=== PATIENT | male | born 1965 | race Two or more races ===

== ENCOUNTER 2017-06-16 11:20 | Emergency (ER) | payer MEDICAID, SELFPAY ==
[~2017-06-16] VITALS: Ht 170.2 cm; Wt 74.8 kg
[~2017-06-16 11:20] MED LIST: IBUPROFEN400 MG PO; IBUPROFEN600 MG ORAL; IBUPROFEN600 MG PO; NORCO 5-325 TA1 EACH ORAL; VALIUM5 MG ORAL
[2017-06-16] MEDS ORDERED: Ketorolac 60mg Inj IM ONE (12:30)
[2017-06-16] MEDS ORDERED: CYCLOBENZAPRINE10 MG ORAL (12:31)
[2017-06-16] MEDS ORDERED: IBUPROFEN600 MG ORAL (12:31)
[2017-06-16 12:37] LABS: APPEARANCE,URINE CLEAR; BILIRUBIN, URINE NEGATIVE (NEGATIVE); GLUCOSE, URINE (UA) NEGATIVE (NEGATIVE); KETONES,URINE NEGATIVE (NEGATIVE); LEUKOCYTE ESTERASE ,URINE 1+ (NEGATIVE); NITRITE,URINE NEGATIVE (NEGATIVE); PH,URINE 7 (4.5-8.0); PROTEIN,URINE NEGATIVE (NEGATIVE); UROBILINOGEN,URINE 1 MG/DL (0.0-1.0)
[2017-06-16 12:44] LABS: COLOR,URINE YELLOW
[2017-06-16 12:49] VITALS: BP 129/97
--- NOTE | 2017-06-16 12:52 | Emergency Room Report ---
History of Present Illness General Chief Complaint: Lower Back Pain or Injury Source: Patient Present Illness HPI Patient is a 52-year-old male presented after increased right-sided back pain. Patient gradual onset of symptoms I he reports having increased pain to his right side. He denies any fever . he denies any dysuria patient states that he had all accident approximately 2 weeks ago which was minor. He denies any vomiting or diarrhea . Patient denies any bowel or bladder dysfunction. He denied any radiation to his legs. Pain is worse with right rotation and right lateral flexion Allergies: Coded Allergies: No Known Allergies (Unverified , 07/09/12) Patient History Past Medical History: see triage record Reviewed Nursing Documentation: PMH: Agreed, PSxH: Agreed Nursing Documentation-PMH Past Medical History: No Stated History Review of Systems All Other Systems: negative except mentioned in HPI Physical Exam Vital Signs Date Time Temp Pulse Resp B/P (MAP) Pulse Ox O2 Delivery O2 Flow Rate FiO2 06/16/17 11:26 97.9 95 16 129/97 99 Room Air General Appearance: well appearing, no apparent distress, alert, GCS 15 Head: normocephalic, atraumatic ENT: hearing grossly normal, normal voice Neck: full range of motion, supple Respiratory: no respiratory distress, speaking full sentences Musculoskeletal: normal inspection, back normal, digits/nails normal, gait/ station normal, normal range of motion, no calf tenderness, other - pain with right lateral flexion and twisting toward right, negative SLR bilaterally Neurologic: normal inspection, alert, oriented x3, normal gait Psychiatric: mood/affect normal Skin: no rash Medical Decision Making Diagnostic Impression: Primary Impression: Acute myofascial strain ER Course Patient presented for low back pain. Differential diagnosis included but was not limited to herniated disc, cauda equina syndrome, abdominal aortic aneurysm , perforated ulcer, spinal epidural abscess, spinal stenosis, lumbar fracture, metastatic lesion, pyelonephritis. The patient appears to be focused on obtaining soma . He became angry when I offered him a different muscle relaxant. A urinalysis shows no definite infection. The patient is advised to follow up with primary care doctor in 1-2 days. Patient is advised to return if any worsening condition or if any changes in status that are concerning. This report is dictated with [employer] telecommunications technician software which may occasionally lead to discrepancies related to use of this software. Labs Test 06/16/17 12:15 Urine Color Yellow Urine Appearance Clear Urine pH 7 (4.5-8.0) Urine Specific [place] 1.010 (1.005-1.035) Urine Protein Negative (NEGATIVE) Urine Glucose (UA) Negative (NEGATIVE) Urine Ketones Negative (NEGATIVE) Urine Occult Blood Negative (NEGATIVE) Urine Nitrite Negative (NEGATIVE) Urine Bilirubin Negative (NEGATIVE) Urine Urobilinogen 1 MG/DL (0.0-1.0) Urine Leukocyte Esterase 1+ (NEGATIVE) Urine RBC 0 /HPF (0 - 0) Urine WBC 2-4 /HPF (0 - 0) Urine Squamous Epithelial Cells Occasional /LPF Urine Bacteria Occasional /HPF (NONE) Last Vital Signs Date Time Temp Pulse Resp B/P (MAP) Pulse Ox O2 Delivery O2 Flow Rate FiO2 06/16/17 11:26 97.9 95 16 129/97 99 Room Air Status: improved Disposition: HOME, SELF-CARE Condition: Stable Scripts Ibuprofen* (MOTRIN*) 600 Mg Tablet 600 MG ORAL Q8H Y for For Pain, #30 TAB 0 Refills Prov: Neri Jim 06/16/17 Cyclobenzaprine Hcl* (FLEXERIL*) 10 Mg Tablet 10 MG ORAL TID Y for Muscle Spasm, #20 TAB Prov: Neri Jim 06/16/17 Referrals: [facility],REFERRING (PCP) Patient Instructions: Back Pain, Adult Neri Jim Jun 16, 2017 12:52
== END 2017-06-16 12:48 | disposition home or self-care (01) ==
LOC: EMR 11:35
DX: M79.1 Myalgia (principal)
CPT/HCPCS: 80307; 81003; 99284

== ENCOUNTER 2018-06-28 12:16 | Emergency (ER) | payer MEDICAID ==
[~2018-06-28] VITALS: Ht 167.6 cm; Wt 72.6 kg
[~2018-06-28 12:16] MED LIST changes: +CYCLOBENZAPRINE10 MG ORAL
[2018-06-28] MEDS ORDERED: NKM (12:22)
[2018-06-28 12:24] VITALS: BP 128/86
[2018-06-28] MEDS ORDERED: TYLENOL EXTRA500 MG ORAL (12:35)
[2018-06-28] MEDS ORDERED: ACYCLOVIR400 MG ORAL (12:35)
--- NOTE | 2018-06-28 12:35 | Emergency Room Report ---
History of Present Illness General Chief Complaint: Male Urogenital Problems Source: Patient Present Illness HPI 53-year-old male patient presents the ER complaining of pain on the tip of his penis for the past day. Reports pain is intensified in the past few hours. Describes as a burning pain. Patient reports a history of herpes. States that the herpes is usually on the base of the skin around the base of his penis and not on the tip of the. Reports recent sexual activity 10 days ago, states did not use protection. States mutually monogamous relationship, denies sex with other people. Denies dysuria, hematuria, penile discharge. Denies scrotum pain or swelling. Denies fever, chest pain, shortness of breath. Reports previously taking herpes medication, states has not taken for a while, states does not member the name of the medication. Concern for gonorrhea or chlamydia. States has follow-up appoint with his primary care scheduled for Sunday. Allergies: Coded Allergies: No Known Allergies (Unverified , 07/09/12) Patient History Past Medical History: see triage record Reviewed Nursing Documentation: PMH: Agreed; PSxH: Agreed Nursing Documentation-PMH Past Medical History: No Stated History Review of Systems All Other Systems: negative except mentioned in HPI Physical Exam Vital Signs Date Time Temp Pulse Resp B/P (MAP) Pulse Ox O2 Delivery O2 Flow Rate FiO2 06/28/18 12:19 98.4 95 18 123/86 96 Room Air Sp02 EP Interpretation: reviewed, normal General Appearance: well appearing, no apparent distress, alert, GCS 15, non- toxic Head: normocephalic, atraumatic Eyes: bilateral eye normal inspection, bilateral eye PERRL ENT: hearing grossly normal, normal pharynx, no angioedema, normal voice, uvula midline, moist mucus membranes Neck: full range of motion Respiratory: lungs clear, normal breath sounds, no rhonchi, no respiratory distress, no accessory muscle use, no wheezing, speaking full sentences Cardiovascular #1: regular rate, rhythm, no edema Genitourinary: scrotum normal, other - Small 2 cm area of erythema on tip of penis, no vesicles, no blistering, no edema, no chancre Musculoskeletal: back normal, digits/nails normal, gait/station normal, normal range of motion, non-tender Neurologic: alert, oriented x3, responsive, motor strength/tone normal, sensory intact Psychiatric: mood/affect normal Medical Decision Making PA Attestation Dr. Sykes is my supervising Physician whom patient management has been discussed with. 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 presents to the ED c/o pain on head of penis x1day. Ddx considered but are not limited to atopic dermatitis, herpes simplex, syphillis, pearly penile papules, molluscum contagiosum, gonorrhea, chlamydia, cellulitis. Vital signs: are WNL, pt. is afebrile ER COURSE: Physical consistent with early herpes outbreak on tip of penis. No blisters or vesicles noted however due to patient history of herpes and complaints of burning pain with erythematous region on tip of penis will treat as release herpes infection. Will provide patient with acyclovir. Take Tylenol for pain symptoms. Advised patient to follow with primary care provider. Avoid sexual activity. Follow-up with PCP or STI clinic for STI testing. Patient denies concern for gonorrhea chlamydia, we will not treat patient at this time. No chancre, low suspicion for syphilis. No papules, low suspicion for pearly penile papules. ER precautions given. DISCHARGE: -Rx given for Acyclovir, 400mg TID x7 days. At this time pt. is stable for d/c to home. Patient is resting comfortably in no acute distress, nontoxic appearing. Will provide printed patient care instructions, and any necessary prescriptions. Patient instructed to follow with primary care provider in 3-5 days for further treatment and referral as needed. Informed patient breakouts may occur during periods of stress or illness. Discuss future treatment options to prevent breakouts with patient; informed patient to discuss with primary care provider. Care plan and follow up instructions have been discussed with the patient prior to discharge. Patient reports understanding and agreement to treatment plan. Patient questions asked and answered. ER precautions given, patient instructed to return to ER immediately for any new or worsening of symptoms. - Please note that this Emergency Department Report was dictated using [employer] building materials yard worker technology software, occasionally this can lead to erroneous entry secondary to interpretation by the dictation equipment. Last Vital Signs Date Time Temp Pulse Resp B/P (MAP) Pulse Ox O2 Delivery O2 Flow Rate FiO2 06/28/18 12:19 98.4 95 18 123/86 96 Room Air Disposition: HOME, SELF-CARE Condition: Stable Scripts Acetaminophen* (TYLENOL EXTRA STRENGTH*) 500 Mg Tablet 500 MG ORAL Q8H PRN for Prn Headache/Temp > 101, #30 TAB 0 Refills Prov: Filipe Betts 06/28/18 Acyclovir* (ACYCLOVIR*) 400 Mg Tablet 400 MG ORAL FIVE TIMES A DAY for 7 Days, #35 TAB Prov: Filipe Betts 06/28/18 Patient Instructions: Genital Herpes Additional Instructions: Followup with primary care provider at scheduled appointment. Take medications as directed. Take Tylenol for pain. Avoid sexual activity for 2 weeks. Inform sexual partners for need for treatment. Discussed testing for gonorrhea/chlamydia/HIV/syphilis with PCP or follow-up with STI clinic. Patient questions asked and answered. ER precautions given, patient instructed to return to ER immediately for any new or worsening of symptoms. Filipe Betts Jun 28, 2018 12:35
== END 2018-06-28 12:50 | disposition home or self-care (01) ==
LOC: EMR 12:45
DX: A60.01 Herpesviral infection of penis (principal)
CPT/HCPCS: 99282

== ENCOUNTER 2019-03-28 06:39 | Emergency (ER) | payer MEDICAID ==
[~2019-03-28] VITALS: Ht 170.2 cm; Wt 74.8 kg
[~2019-03-28 06:39] MED LIST changes: +ACYCLOVIR400 MG ORAL; +NKM; +TYLENOL EXTRA500 MG ORAL
[2019-03-28 06:58] VITALS: BP 138/90
--- NOTE | 2019-03-28 06:58 | NUR ---
ED Nurse Note: PATIENT WALKED IN TO ER DUE TO LEFT 5TH DIGIT PAIN AND SWELLING AFTER SLAMMED IN DOOR THIS AM, BRUISING NOTED, PAIN AT 8/10, ABLE TO MOVE EXTREMITY, ALL PULSES PRESENT. ALERT AND ORIENTED, VERBALLY REPSONSIVE. AFEBRILE. NO SOB. VSS
--- NOTE | 2019-03-28 07:10 | NUR ---
ED Nurse Note: Received report from KRISTAL Haines. Pt is sitting on chair, resting. Reports pain on left fifth digit by slamming door. No trauma noted. CMS intact. NAD noted.
--- NOTE | 2019-03-28 07:14 | Emergency Room Report ---
History of Present Illness General Chief Complaint: Upper Extremity Injury Source: Patient Present Illness HPI 53-year-old male who presents after increased left small finger pain. He reports striking his left index small finger on a glass door. He denies other locations of pain. He reports being a smoker. He states he takes Vicodin for chronic pain. He reports having decreased range of motion to his finger. Denies other locations of injury.Pain is sharp in nature. Allergies: Coded Allergies: No Known Allergies (Unverified , 03/28/19) Patient History Past Medical History: see triage record Reviewed Nursing Documentation: PMH: Agreed; PSxH: Agreed Nursing Documentation-PMH Past Medical History: No Stated History Review of Systems All Other Systems: negative except mentioned in HPI Physical Exam Vital Signs Date Time Temp Pulse Resp B/P (MAP) Pulse Ox O2 Delivery O2 Flow Rate FiO2 03/28/19 06:52 98.2 90 16 138/90 (106) 96 Room Air General Appearance: well appearing, no apparent distress, alert, GCS 15 Head: normocephalic, atraumatic ENT: hearing grossly normal, normal voice Neck: full range of motion, supple Respiratory: normal inspection, lungs clear, no respiratory distress, speaking full sentences Cardiovascular #1: normal inspection Neurologic: normal inspection, alert, oriented x3, responsive, radiation officer III-XII nml as tested, normal gait Psychiatric: normal inspection, mood/affect normal Skin: no rash, warm/dry, other - Slight bruising to the left small finger dorsally slight soft tissue swelling. Decreased range of motion Medical Decision Making Diagnostic Impression: Primary Impression: Finger sprain ER Course Patient presented for left small finger pain. Differential diagnosis include was not limited to sprain, fracture, contusion among others. x-ray of the hand showed no evidence of fracture to the finger. Patient was placed in aluminum splint. He appears to be stable for close outpatient follow-up. He is advised to continue icing the area. He is advised to return if worse. Last Vital Signs Date Time Temp Pulse Resp B/P (MAP) Pulse Ox O2 Delivery O2 Flow Rate FiO2 03/28/19 06:58 98.2 78 16 138/90 96 Room Air Status: improved Disposition: HOME, SELF-CARE Condition: Stable Scripts Ibuprofen* (MOTRIN*) 600 Mg Tablet 600 MG ORAL Q6H PRN for For Pain, #20 TAB 0 Refills Prov: Neri Jim MD 03/28/19 Neri Jim MD Mar 28, 2019 07:14
[2019-03-28] MEDS ORDERED: IBUPROFEN600 MG ORAL (07:56)
[2019-03-28 08:07] VITALS: BP 138/90
--- NOTE | 2019-03-28 08:08 | NUR ---
ED Nurse Note: Finger Splint applied on left 5th digit. Pt is cleared by health care Provider for discharge. DC instructions/prescription was given and explained to pt and verbalized understanding of teachings. All medical deviecs such as ID band removed. Pt is AAO x4, ambulatory and left with all personal belongings.
--- NOTE | 2019-03-28 10:57 | Diagnostic Imaging Report ---
Indication: left hand pain. Comparison: None Findings: 3 views of the left hand were obtained. Normal alignment is demonstrated. No acute fractures, erosions, or periosteal reaction are seen. Bones are osteopenic. Soft tissues are unremarkable. Impression: No acute findings.
== END 2019-03-28 08:10 | disposition home or self-care (01) ==
LOC: EMR 07:18
DX: S63.617A Unspecified sprain of left little finger, initial encounter (principal); F17.200 Nicotine dependence, unspecified, uncomplicated; G89.29 Other chronic pain; W22.09XA Striking against other stationary object, initial encounter; Y92.9 Unspecified place or not applicable
CPT/HCPCS: 29130; 73130; Z7502; 99283